=== PATIENT | female | born 1955 | race African-American/Black ===

== ENCOUNTER 2016-10-23 11:28 | Emergency (ER) | payer BC ==
[~2016-10-23 11:28] MED LIST: *UNABLE1; ABX PO; AMOXIL500 MG PO; AMOXIL500C PO; APRES25 PO; APRES50 PO; ASAB PO; B150 PO; CAT1 PO; CIP5 PO; COREG12 PO; COREG25 PO; DRAMAMINE25 MG PO; FERROUS SULF325 M1 PO; FLORASTOR250 MG PO; FORTAMET500 MG PO; GLUCOPHAGE1000 MG PO; GLUCOTROL5 PO; GLUCPH PO; HUMALOG SC; HYDROCHLOROT25 MG PO; HYPOTEARS OPH; ILA60 PO; INTRAOCULAR EYE INJ IJ; L40 PO; LANTUS SC; LEVEMIR SC; LIPITOR80 MG PO; LISINOPRIL40 MG PO; LOTE20 PO; LOTE40 PO; MCZ125 PO; MCZ25 PO; NAP500 PO; NEUR300 PO; NEUR400 PO; NORV10 PO; NOVOLOG SC; NOVOLOGMIX SC; PLAVIX PO; PRILO PO; PRIN20 PO; T PO; TRESIBA FL100 UNIT/1 SC; VICTOZA18 MG/3 ML SC; ZOCOR40 PO
[2016-10-23 15:26] LABS: BASOPHILS 0.4 %; BASOPHILS ABSOLUTE 0.02 10/3/uL (0.0-0.16); EOSINOPHILS 5.2 %; EOSINOPHILS ABSOLUTE 0.27 10/3/uL (0.0-0.53); ER CBC TAT 0 Hrs 08 Mins; HEMATOCRIT 38.6 % (36.0-48.0); HEMOGLOBIN 12.2 g/dL (12.0-16.0); LYMPHOCYTES 36.9 %; MEAN CORPUS HGB CONC 31.6 g/dL (32.0-36.0); MEAN CORPUSCULAR HEMOGLOB 27.9 pg (26.0-34.0); MEAN CORPUSCULAR VOLUME 88.3 fL (80-100); MEAN PLATELET VOLUME 11.9 fL (9.2-13.0); MONOCYTES 5.4 %; MONOCYTES ABSOLUTE 0.28 10/3/uL (0.21-1.20); NEUTROPHILS 52.1 %; NEUTROPHILS ABSOLUTE 2.68 10/3/uL (2.02-8.40); PLATELET COUNT 202 10/3/uL (150-400); RBC DISTRIBUTION WIDTH 12.7 % (12.0-16.0); RED CELL COUNT 4.37 10/6/uL (4.0-5.6); WHITE BLOOD CELLS 5.2 10/3/uL (4.5-10.5)
[2016-10-23 15:27] LABS: MANUAL DIFF NO %
[2016-10-23 15:46] LABS: A/G RATIO 0.6 (0.7-1.9); ALBUMIN 3.4 G/DL (3.5-5.0); ALKALINE PHOSPHATASE 198 U/L (45-117); BUN (BLOOD UREA NITROGEN) 18 MG/DL (6-23); CALCIUM, SERUM 9.1 MG/DL (8.5-10.4); CHLORIDE, SERUM 106 MMOL/L (96-112); CO2 (CARBON DIOXIDE) 29 MMOL/L (24-34); CREATININE 1.04 MG/DL (0.55-1.02); GFR AFRICAN AMERICAN 68 ML/MIN (>=60); GFR NON AFRICAN AMERICAN 58 ML/MIN (>=60); GLOBULIN 5.5 G/DL (2.5-4.1); GLUCOSE, SERUM 85 MG/DL (60-99); POTASSIUM, SERUM 3.9 MMOL/L (3.5-5.3); SGOT(AST) 24 U/L (5-40); SGPT(ALT) 17 U/L (5-65); SODIUM, SERUM 142 MMOL/L (135-148); TOTAL BILIRUBIN 0.8 MG/DL (0-1.2); TOTAL PROTEIN 8.9 G/DL (6.0-8.5)
== END 2016-10-23 16:45 | disposition home or self-care (01) ==
LOC: ER 11:28
PROVIDERS: Emergency Medicine
DX: K56.41 Fecal impaction (principal); I10 Essential (primary) hypertension; Z95.5 Presence of coronary angioplasty implant and graft; E11.9 Type 2 diabetes mellitus without complications; Z79.82 Long term (current) use of aspirin; Z79.4 Long term (current) use of insulin; Z79.899 Other long term (current) drug therapy
CPT/HCPCS: 74020; 80053; 81001; 83690; 85025; 99283